=== PATIENT | female | born 1955 | race Caucasian/White ===

== ENCOUNTER → 2016-06-27 | Outpatient (CLI) | payer BC ==
--- NOTE | 2016-06-27 12:48 | MAMMOGRAPHY REPORT ---
BILATERAL DIGITAL SCREENING MAMMOGRAM TOMOSYNTHESIS WITH CAD: 06/27/2016 CLINICAL HISTORY: Routine screening. Patient has no complaints. TECHNIQUE: Breast tomosynthesis in addition to standard 2D mammography was performed. Current study was also evaluated with a Computer Aided Detection (CAD) system. COMPARISON: Comparison is made to exams dated: 06/26/2015 mammogram, 06/23/2014 mammogram, 06/22/2013 mammogram, 06/18/2012 mammogram, and 07/23/2011 ultrasound - [facility]. BREAST COMPOSITION: There are scattered areas of fibroglandular density in both breasts. FINDINGS: No suspicious masses, calcifications, or areas of architectural distortion are noted in e ither breast. There has been no significant interval change compared to prior exams. IMPRESSION: ACR BI-RADS CATEGORY 1: NEGATIVE There is no mammographic evidence of malignancy. A 1 year screening mammogram is recommended. The p atient will receive written notification of the results. Approximately 10% of breast cancers are not detected with mammography. A negative mammographic repor t should not delay biopsy if a clinically suggestive mass is present. Kinjal Oneil M.D. /:06/27/2016 12:01:44 Powder Blender: Brie [address], [facility] letter sent: Normal 1/2 BI-RADS Code: ACR BI-RADS Category 1: Negative
== END | disposition home or self-care (01) ==
LOC: C.MAMM 07:59
PROVIDERS: ATTEND Obstetrics & Gynecology
DX: Z12.31 Encounter for screening mammogram for malignant neoplasm of breast (principal)

== ENCOUNTER → 2017-06-30 | Outpatient (CLI) | payer OTHER ==
--- NOTE | 2017-07-01 13:03 | MAMMOGRAPHY REPORT ---
BILATERAL DIGITAL SCREENING MAMMOGRAM TOMOSYNTHESIS WITH CAD: 06/30/2017 CLINICAL HISTORY: Routine screening. TECHNIQUE: Breast tomosynthesis in addition to standard 2D mammography was performed. Current study was also evaluated with a Computer Aided Detection (CAD) system. COMPARISON: Comparison is made to exams dated: 06/27/2016 mammogram, 06/26/2015 mammogram, 06/23/2014 m ammogram, 06/22/2013 mammogram, 06/18/2012 mammogram, and 06/18/2011 mammogram - [facility] enter. BREAST COMPOSITION: There are scattered areas of fibroglandular density in both breasts. FINDINGS: The parenchymal pattern is unchanged. No developing mass, architectural distortion or clus ter of suspicious microcalcifications is seen in either breast. IMPRESSION: ACR BI-RADS CATEGORY 2: BENIGN There is no mammographic evidence of malignancy. A 1 year screening mammogram is recommended. The pa tient will receive written notification of the results. Approximately 10% of breast cancers are not detected with mammography. A negative mammographic report should not delay biopsy if a clinically suggestive mass is present. Lisa Marcus M.D. ay/:06/30/2017 16:11:54 Lime Sludge Kiln Operator: Daniela NYE(Tala)(M), [facility] letter sent: Normal 1/2 BI-RADS Code: ACR BI-RADS Category 2: Benign
== END | disposition home or self-care (01) ==
LOC: C.MAMM 08:41
PROVIDERS: ATTEND Obstetrics & Gynecology
DX: Z12.31 Encounter for screening mammogram for malignant neoplasm of breast (principal)

== ENCOUNTER 2021-08-12 10:29 | Observation (INO) ==
[2021-08-12] MEDS ORDERED: ONDANSETRON INJ 2 MG/ML 2 ML VIAL IV STA (11:11)
[2021-08-12] MEDS ORDERED: SODIUM CHLORIDE 0.9% 1000ML 1,000 ML IV ONE (11:11)
--- NOTE | 2021-08-12 11:15 | Emergency Department Note ---
History of Present Illness General Chief complaint: Illness Stated complaint: BIT BY TICK/PUT ON MEDICINE HAVING ALLERGIC REACTI Time Seen by Provider: 08/12/21 10:57 Source: patient and family ( who is at the bedside) Mode of arrival: ambulatory Limitations: no limitations History of Present Illness This patient comes in after feeling dizzy. She said around 10 days ago her daughter pulled a tick off her left scapular area. She is had no rash. She called her doctor and they gave her doxycycline 200 mg x 1. She felt some body aches and was feeling okay throughout the week although starting Friday she felt very dizzy like she was spinning it is worse if she moves or looks to the right. She feels better at rest. She had multiple episodes of emesis her gave her Dramamine and she has had no vomiting since Friday she started to feel little bit better than she was. She has had no focal numbness weakness denies any headache at present. No fall or trauma she does feel like her balance is off. No rash. No difficulty speaking or swallowing no chest pain shortness breath or abdominal pain. She has no ear pain. her right ear feels like she can hear her heartbeat in it no headache neck pain or stiffness. Home Medications Medication Instructions Recorded Confirmed Type diphenhydramine HCl 25 mg capsule 25 mg PO HS PRN 07/06/18 08/12/21 History (Benadryl) lidocaine 4 % topical gel 1 applic TOPICAL BID PRN 07/06/18 08/12/21 History tramadol 50 mg tablet 50 - 100 mg PO Q6H PRN 07/06/18 08/12/21 History albuterol sulfate 90 mcg/actuation 1 puffs INH Q6H PRN #8 gm 11/19/18 08/12/21 Rx aerosol inhaler meloxicam 15 mg tablet 15 mg PO DAILY #90 tab 10/12/19 08/12/21 Rx triamcinolone acetonide 0.1 % 1 appln TOP BID #30 gm 10/12/19 08/12/21 Rx topical cream montelukast 10 mg tablet 10 mg PO DAILY #30 tab 04/24/20 08/12/21 Rx (Singulair) clobetasol 0.05 % topical ointment 1 applic TOPICAL .COMPLEX #15 g 05/15/20 08/12/21 Rx amlodipine 5 mg tablet 5 mg PO DAILY #30 tab 02/06/21 08/12/21 Rx ropinirole 0.5 mg tablet 0.5 - 1 mg PO HS #90 tab 04/03/21 08/12/21 Rx benzonatate 200 mg capsule 200 mg PO TID PRN #30 cap 04/30/21 08/12/21 Rx citalopram 40 mg tablet 40 mg PO QPM #30 tab 05/14/21 08/12/21 Rx doxycycline hyclate 100 mg capsule 200 mg PO DAILY #2 cap 08/03/21 08/12/21 Rx Allergies Allergy/AdvReac Type Severity Reaction Status Date / Time morphine Allergy Intermediate Vomiting Unverified 08/12/21 11:36 No Known Drug Allergies Allergy Verified 08/08/20 15:26 nickel AdvReac RASH ON Verified 03/15/21 08:25 POSTERIOR NECK, MAY BE RELATED TO NECKLACE Effexor TABS Allergy Unknown Uncoded 08/12/21 11:36 Erythromycin Derivatives Allergy Unknown Uncoded 08/12/21 11:36 Past Med/Surg History Medical History Allergic rhinitis Depression Hypertension Lichen sclerosus et atrophicus Restless leg syndrome Surgical History H/O knee surgery History of cholecystectomy History of colonoscopy 2018, family hx History of hysterectomy with ovaries removed History of open reduction and internal fixation (ORIF) procedure ANKLE FX S/P nasal surgery Family History Family/Other Breast cancer Mother Breast cancer Grandmother (Maternal) Colon cancer Ovarian cancer Sister Multiple sclerosis Raynauds syndrome Father Lupus (systemic lupus erythematosus) Social History Smoking Status: Never smoker Second Hand Exposure: No; Hx Alcohol Use: Yes Alcohol type: other Hx Substance Use: No Preferred Language: Moldovan Communication Ability: Effective Genetic Engineer Required: No Beliefs That Will Affect Care: None Current Living Situation: Spouse Feels Safe at Home: Yes caffeine: Yes Assistive Devices: Glasses Review of Systems A total of 10 systems reviewed and were otherwise negative Physical Exam Vital Signs Vital Signs - 24 hr 08/12/21 10:33 08/12/21 11:32 08/12/21 13:32 Temperature 37 C Temperature Source Temporal Artery Scan Pulse Rate 96 H 72 Pulse Rate [Finger] Respiratory Rate 18 18 Respiratory Effort / Characteristics Non-Labored Spontaneous Respiratory Depth Normal Respiratory Pattern Regular Blood Pressure 173/104 H 152/91 H Blood Pressure [Left Arm] Blood Pressure Mean 127 111 Blood Pressure Mean [Left Arm] Blood Pressure Position Sitting Blood Pressure Position [Left Arm] Pulse Oximetry 100 97 98 Oxygen Delivery Method Room Air Room Air Room Air Sepsis Recent Fever Within 48 Hours No Sepsis New/Unexplained Change in Mental Status No Sepsis Action Taken by Nursing No Action Required 08/12/21 15:00 Temperature Temperature Source Pulse Rate Pulse Rate [Finger] 72 Respiratory Rate 18 Respiratory Effort / Characteristics Respiratory Depth Respiratory Pattern Blood Pressure Blood Pressure [Left Arm] 169/105 H Blood Pressure Mean Blood Pressure Mean [Left Arm] 126 Blood Pressure Position Blood Pressure Position [Left Arm] Sitting Pulse Oximetry 93 Oxygen Delivery Method Room Air Sepsis Recent Fever Within 48 Hours Sepsis New/Unexplained Change in Mental Status Sepsis Action Taken by Nursing General: Well developed well nourished older female who appears in no acute distress, breathing comfortably on room air. Normal speech she gets dizzy when she looks or turns to the right. HEENT: Normal cephalic atraumatic. Pupils are equal round and reactive to light . Extraocular movements are intact. Oropharynx is pink with moist mucous membranes. No swelling of the mouth lips or tongue. Neck: Supple with a midline trachea. No meningeal signs or stiffness, no JVD or bruits. No Stridor. Chest: Clear to auscultation bilaterally. No wheezes or rhonchi. No increased work of breathing. Heart: Regular rate and rhythm without murmurs or gallops. Abdomen: Soft nontender, nondistended without rebound guarding or rigidity. Extremities: No cyanosis clubbing or edema. No calf tenderness or assymetry Spine/Back. Non tender to palpation. No CVA tenderness Skin: Good turgor without rashes. Neurologic exam: Cranial nerves two through 12 are intact. Motor and sensation are intact and symmetrical throughout. Hearing is intact. No tremor. No pronator drift. Course Administered Medications Discontinued Medications Sodium Chloride (Nss 1000ml) 1,000 mls @ 999 mls/hr IV .Q1H1M ONE Stop: 08/12/21 12:11 Last Infusion: 08/12/21 13:06 Dose: 0 mls/hr Documented by: [id number] Admin: 08/12/21 11:34 Dose: 999 mls/hr Documented by: [id number] Meclizine HCl (Meclizine Hcl 25 Mg Tab) 25 mg PO NOW STA Stop: 08/12/21 13:46 Last Admin: 08/12/21 14:00 Dose: 25 mg Documented by: [id number] Ondansetron HCl (Ondansetron Inj 2 Mg/Ml 2 Ml Vial) 4 mg IV NOW STA Stop: 08/12/21 11:12 Last Admin: 08/12/21 11:36 Dose: 4 mg Documented by: [id number] Medical Decision Making Differential Diagnosis Acute coronary syndrome, tickborne illness, medication reaction, vertigo, electrolyte or metabolic abnormality, dehydration, intracranial process, CVA Medical Records Attestation: I reviewed the patient's medical records. Home Medications Current Medication List: was personally reviewed by me Laboratory Data Attestation: I reviewed the patient's lab results. Result diagrams: 08/12/21 11:28 08/12/21 11:28 Lab Results 08/12/21 08/12/21 08/12/21 Range/Units 11:28 11:28 11:28 WBC 6.00 (4.8-10.8) K/uL RBC 4.71 (4.2-5.4) M/uL Hgb 13.7 (12.0-16.0) g/dL Hct 41.2 (37-47) % MCV 87.5 (80-100) fL MCH 29.1 (25-34) pg MCHC 33.3 (32-36) g/dL RDW Std Deviation 46.1 (36.4-46.3) fL RDW Coeff of Abad 14.3 (11.5-14.5) % Plt Count 292 (130-400) K/uL MPV 11.2 H (7.4-10.4) fL Immature Gran % (Auto) 0.3 % Neut % (Auto) 63.6 % Lymph % (Auto) 25.2 % [place] % (Auto) 9.2 % Eos % (Auto) 1.2 % Baso % (Auto) 0.5 % Neut # (Auto) 3.82 (1.4-6.5) K/uL Lymph # (Auto) 1.51 (1.2-3.4) K/uL [place] # (Auto) 0.55 (0.11-0.59) K/uL Eos # (Auto) 0.07 (0-0.5) K/uL Baso # (Auto) 0.03 (0-0.2) K/uL Immature Gran # (Auto) 0.02 (0.00-0.02) K/uL Sodium (136-145) mmol/L Potassium (3.5-5.1) mmol/L Chloride (98-107) mmol/L Carbon Dioxide (21-32) mmol/L Anion Gap (3-11) BUN (6-23) mg/dl Creatinine (0.6-1.2) mg/dl Est Cr Clr Drug Dosing ml/min Est GFR ( Amer) ml/min Est GFR (Non-Af Amer) ml/min BUN/Creatinine Ratio (10-20) Glucose (70-99(Fasting)) mg/dl Calcium (8.5-10.1) mg/dl Total Bilirubin (0.2-1.0) mg/dl AST (13-39) U/L ALT (7-52) U/L Alkaline Phosphatase (34-104) U/L Troponin I High Sens 5.2 (0-14) pg/ml Total Protein (6.0-8.3) gm/dl Albumin (3.4-5.0) gm/dl Globulin (2.5-4.0) gm/dl Albumin/Globulin Ratio (0.9-2) Lipase (11-82) U/L Anaplasma Smear See Comment Babesia Smear See Comment Lyme Disease IgG Ab Negative (Negative) Lyme Disease IgM Ab Negative (Negative) SARS-CoV-2, RNA, NAAT (NEGATIVE) 08/12/21 08/12/21 Range/Units 11:28 15:09 WBC (4.8-10.8) K/uL RBC (4.2-5.4) M/uL Hgb (12.0-16.0) g/dL Hct (37-47) % MCV (80-100) fL MCH (25-34) pg MCHC (32-36) g/dL RDW Std Deviation (36.4-46.3) fL RDW Coeff of Abad (11.5-14.5) % Plt Count (130-400) K/uL MPV (7.4-10.4) fL Immature Gran % (Auto) % Neut % (Auto) % Lymph % (Auto) % [place] % (Auto) % Eos % (Auto) % Baso % (Auto) % Neut # (Auto) (1.4-6.5) K/uL Lymph # (Auto) (1.2-3.4) K/uL [place] # (Auto) (0.11-0.59) K/uL Eos # (Auto) (0-0.5) K/uL Baso # (Auto) (0-0.2) K/uL Immature Gran # (Auto) (0.00-0.02) K/uL Sodium 141 (136-145) mmol/L Potassium 3.5 (3.5-5.1) mmol/L Chloride 105 (98-107) mmol/L Carbon Dioxide 27 (21-32) mmol/L Anion Gap 9 (3-11) BUN 14 (6-23) mg/dl Creatinine 0.79 (0.6-1.2) mg/dl Est Cr Clr Drug Dosing 78.2 ml/min Est GFR ( Amer) 91.0 ml/min Est GFR (Non-Af Amer) 78.6 ml/min BUN/Creatinine Ratio 17.7 (10-20) Glucose 96 (70-99(Fasting)) mg/dl Calcium 9.5 (8.5-10.1) mg/dl Total Bilirubin 0.4 (0.2-1.0) mg/dl AST 13 (13-39) U/L ALT 11 (7-52) U/L Alkaline Phosphatase 96 (34-104) U/L Troponin I High Sens (0-14) pg/ml Total Protein 7.2 (6.0-8.3) gm/dl Albumin 4.3 (3.4-5.0) gm/dl Globulin 2.9 (2.5-4.0) gm/dl Albumin/Globulin Ratio 1.5 (0.9-2) Lipase 10 L (11-82) U/L Anaplasma Smear Babesia Smear Lyme Disease IgG Ab (Negative) Lyme Disease IgM Ab (Negative) SARS-CoV-2, RNA, NAAT NEGATIVE (NEGATIVE) Imaging Data Attestation: I personally reviewed and interpreted this imaging study as follows: My Impression: X-rayno acute infiltrate, failure, pneumothorax seen. Head CTno hemorrhage or mass-effect. Radiologist's Impression: Chest X-Ray 08/12/21 11:11 XR chest 1V portable CLINICAL HISTORY: Atypical chest pain. COMPARISON STUDY: Chest radiograph December 22, 2018. FINDINGS: Mild elevation of the right hemidiaphragm is unchanged. Linear left mid lung opacity reflects atelectasis or scarring. There is no pneumothorax or pleural effusion. Cardiac size is stable. Mediastinal contours are normal. There is no evidence for pulmonary edema. IMPRESSION: No acute cardiopulmonary findings. ACT 112: Negative or not required by law. Electronically signed by: Jc Pulliam M.D. 08/12/2021 11:[address] 08/12/21 11:21 CT OF THE HEAD WITHOUT CONTRAST CLINICAL HISTORY: Dizzy. COMPARISON STUDY: No previous studies for comparison. CT DOSE: 537.48 mGy.cm TECHNIQUE: Helical axial images of the head were obtained without IV contrast. Automated exposure control was utilized for the study. A dose lowering techniq ue was utilized adhering to the principles of ALARA. FINDINGS: No acute intracranial hemorrhage, midline shift or mass effect is present. The ventricular system is unremarkable. The basal cisterns are patent. No extra-axial collections are present. There are no findings to suggest acute dural sinus thrombosis or acute territorial infarct. No significant calvarial abnormalities are present. Visualized portions of the sinuses and mastoid air cells are clear. IMPRESSION: No acute intracranial findings. ACT 112: Negative or not required by law. Electronically signed by: Jc Pulliam M.D. 08/12/2021 12:12 PM ECG Data Attestation: I personally reviewed and interpreted this ECG as follows: Indication: + weakness Rate (beats per minute): 67 Rhythm: + normal sinus ECG Intervals/blocks: + Normal QRS, + Normal QT and + Normal HI ECG [place]: + Normal ECG ST segments: + Nonspecific ST abnormalities ECG Findings: + Poor R wave progression and + LVH; no PACs or no PVCs Comparison ECG Date: from (07/21/13) Change: no significant change MDM Narrative This patient comes in as described above. She was placed in room C2. She is here for treatment and evaluation of dizziness. It is reproducible with movement she has a normal neurologic exam she did have a tick bite which may or may not be related she also took doxycycline x1. She is afebrile she has had no headache neck pain or stiffness. IV acccess was established and she was hydrated with IV normal saline bolus. she was given Zofran 4 mg IV. CAT scan of her head EKG and multiple blood test including tickborne studies were obtained she also COVID tested. CAT scan of her head is unremarkable. EKG does not suggest ischemia or arrhythmia. She has no significant electrolyte or metabolic abnormality. She has nothing to suggest infection or sepsis or significant anemia. Her work-up for a tickborne illness thus far is unremarkable with a normal Lyme titers, no evidence of babesiosis or anaplasmosis on peripheral smear. PCR's are pending. She has no bull's-eye rash to suggest Lyme and clinically I do not think her symptoms are likely related to tickborne but may be coincidental as it seems more likely a peripheral vertigo. When I reassessed her she seems to be doing a lot better and feels well at rest however when we tried to get her up to the bathroom she is very dizzy and off-balance and unable to ambulate by herself. She certainly is a fall risk and I do think can safely go home. In light of her continuation of symptoms, I also did add an MRI which is pending and the hospitalist came and saw her as well for admission/observation. I think this most likely is peripheral vertigo and her symptoms have been going on since Friday so she is outside of neuro intervention window at this point and even in the event that it was a stroke but she is getting further work-up with MRI and observation in the hospital. The patient and are happy the plan and she will be admitted/observed. Continuous cardiac monitoring: An order was placed in the EMR for continuous cardiac monitoring. Upon my interpretation the patient was noted to be in normal sinus rhythm with a rate of 90 Impression & Plan Dizziness, Acute dehydration, Lab test negative for COVID-19 virus, Ambulatory dysfunction, Tick bite Discharge Plan Visit Data Chief Complaint: Illness Stated Complaint: BIT BY TICK/PUT ON MEDICINE HAVING ALLERGIC REACTI ED Provider: Dirk Montoya Discharge Problem: Dizziness, Acute dehydration, Lab test negative for COVID-19 virus, Ambulatory dysfunction, Tick bite Forms Stand Alone Forms: My [facility] Prescriptions Prescriptions: No Action amlodipine 5 mg tablet 5 mg PO DAILY Qty: 30 RF: 11 ropinirole 0.5 mg tablet 0.5 - 1 mg PO HS Qty: 90 RF: 3 benzonatate 200 mg capsule 200 mg PO TID PRN (Reason: cough) Qty: 30 RF: 0 citalopram 40 mg tablet 40 mg PO QPM Qty: 30 RF: 11 doxycycline hyclate 100 mg capsule 200 mg PO DAILY Qty: 2 RF: 0 triamcinolone acetonide 0.1 % cream 1 appln TOP BID Qty: 30 RF: 3 meloxicam 15 mg tablet 15 mg PO DAILY Qty: 90 RF: 3 montelukast [Singulair] 10 mg tablet 10 mg PO DAILY Qty: 30 RF: 11 clobetasol 0.05 % ointment 1 applic topical .COMPLEX Qty: 15 RF: 1 albuterol sulfate 90 mcg/actuation HFA aerosol inhaler 1 puffs INH Q6H PRN (Reason: shortness of breath or wheezing) Qty: 8 RF: 1 tramadol 50 mg Tablet 50 - 100 mg PO Q6H PRN (Reason: Pain) RF: 0 diphenhydramine HCl [Benadryl] 25 mg Capsule 25 mg PO HS PRN (Reason: Sleep) RF: 0 lidocaine 4 % Gel 1 applic TOPICAL BID PRN (Reason: PRN) RF: 0 Referrals Referrals: Shiraz Leyva MD [Primary Care Provider] - Discharge Problem: Tick bite Qualifiers: Encounter type: initial encounter Site of tick bite: shoulder Laterality: left Qualified Code(s): S40.262A - Insect bite (nonvenomous) of left shoulder, initial encounter
--- NOTE | 2021-08-12 11:56 | XRay Report ---
XR chest 1V portable CLINICAL HISTORY: Atypical chest pain. COMPARISON STUDY: Chest radiograph December 22, 2018. FINDINGS: Mild elevation of the right hemidiaphragm is unchanged. Linear left mid lung opacity reflec ts atelectasis or scarring. There is no pneumothorax or pleural effusion. Cardiac size is stable. Med iastinal contours are normal. There is no evidence for pulmonary edema. IMPRESSION: No acute cardiopulmonary findings. ACT 112: Negative or not required by law. Electronically signed by: Jc Pulliam M.D. 08/12/2021 11:55 AM
--- NOTE | 2021-08-12 12:13 | CT Scan Report ---
CT OF THE HEAD WITHOUT CONTRAST CLINICAL HISTORY: Dizzy. COMPARISON STUDY: No previous studies for comparison. CT DOSE: 537.48 mGy.cm TECHNIQUE: Helical axial images of the head were obtained without IV contrast. Automated exposure con trol was utilized for the study. A dose lowering technique was utilized adhering to the principles o f ALARA. FINDINGS: No acute intracranial hemorrhage, midline shift or mass effect is present. The ventricular system is unremarkable. The basal cisterns are patent. No extra-axial collections are present. There are no findings to suggest acute dural sinus thrombosis or acute territorial infarct. No significant calvarial abnormalities are present. Visualized portions of the sinuses and mastoid air cells are dejon ar. IMPRESSION: No acute intracranial findings. ACT 112: Negative or not required by law. Electronically signed by: Jc Pulliam M.D. 08/12/2021 12:12 PM
[2021-08-12 12:14] LABS: Basophils # (auto) 0.03 K/uL (0-0.2); Basophils % (auto) 0.5 %; Eosinophils # (auto) 0.07 K/uL (0-0.5); Eosinophils % (auto) 1.2 %; Hematocrit (blood only) 41.2 % (37-47); Hemoglobin 13.7 g/dL (12.0-16.0); Immature Granulocytes # (auto) 0.02 K/uL (0.00-0.02); Immature Granulocytes % (auto) 0.3 %; Lymphocytes # (auto) 1.51 K/uL (1.2-3.4); Lymphocytes % (auto) 25.2 %; Mean Corpuscular Hemoglobin 29.1 pg (25-34); Mean Corpuscular Hgb Conc 33.3 g/dL (32-36); Mean Corpuscular Volume 87.5 fL (80-100); Mean Platelet Volume 11.2 fL (7.4-10.4); Monocytes # (auto) 0.55 K/uL (0.11-0.59); Monocytes % (auto) 9.2 %; Neutrophils # (auto) 3.82 K/uL (1.4-6.5); Neutrophils % (auto) 63.6 %; Platelet Count 292 K/uL (130-400); RDW Coefficient of Variation 14.3 % (11.5-14.5); RDW Standard Deviation 46.1 fL (36.4-46.3); Red Blood Count 4.71 M/uL (4.2-5.4)
[2021-08-12 12:25] LABS: Albumin Level 4.3 gm/dl (3.4-5.0); Bilirubin,Total 0.4 mg/dl (0.2-1.0); Calcium 9.5 mg/dl (8.5-10.1); Potassium 3.5 mmol/L (3.5-5.1)
[2021-08-12 12:31] LABS: Albumin Globulin Ratio 1.5 (0.9-2); BUN Creatinine Ratio 17.7 (10-20); Creatinine Clr Calc Pharmacy 78.2 ml/min; Est GFR (Non-African American) 78.6 ml/min; Globulin 2.9 gm/dl (2.5-4.0); Total Protein 7.2 gm/dl (6.0-8.3)
[2021-08-12 12:55] LABS: Lyme Ab IgG w/WB Rflx Negative (Negative); Lyme Ab IgM w/WB Rflx Negative (Negative)
[2021-08-12] MEDS ORDERED: MECLIZINE HCL 25 MG TAB PO STA (13:45)
--- NOTE | 2021-08-12 16:25 | History & Physical Report ---
Date of Service August 12, 2021 Assessment & Plan (1) Dizziness: (2) Ambulatory dysfunction: (3) Tick bite: (4) Depression: (5) Hypertension: (6) Restless leg syndrome: Plan: Hortencia is a 66 year old female w/ PmHx allergic rhinitis, restless leg syndrome, lichen sclerosis et atrophicus, depression admitted for observation for dizziness impacting ambulation. Dizziness/Ambulatory dysfunction: - Patient neurologically intact, CT head w/o abnormalities. - EKG w/ normal sinus rhythm, w/o acute ischemic changes. - MRI brain ordered. - Symptoms replicated w/ head turn L to R, w/o nystagmus. - BPPV vs viral induced vertigo. - Zofran, Meclizine Q6h PRN for nausea. - PT/OT eval tomorrow. Tick Bite: - Tick bite w/o trace of rash. - Treated w/ 200mg doxycycline prophylactically w/o issue. - Tick panel grossly negative. HTN: -Continue home amlodipine 5mg daily. Restless leg syndrome: - Continue home ropinirole. Depression: - Continue home citalopram. Postmenopausal atrophic vaginitis: - Continue home clobetasol. Asthma: - Continue home albuterol, monteleukast. Fibromyalgia: - Continue home meloxicam. F/E/N/GI: Regular diet. Code Status: Full code. Dispo: Med/surg observation. History of Present Illness Chief Complaint: Dizziness Primary Care Provider: Shiraz Leyva MD Hortencia is a 66 year old female w/ past medical history of allergic rhinitis, restless leg syndrome, lichen sclerosis et atrophicus, depression coming in for dizziness x3 days. She says she found a tick on her left arm 08/02 without any signs of rash or systemic symptoms. The next day she called her primary care office which prescribed her 200mg of doxycycline to take at once. She last took the doxycycline on Friday and had no issues with it. Friday morning around 3:30AM she awoke to take her dog out to use nature's facilities then went back to bed. At ~5AM she awoke to use the bathroom, got out of bed and felt like she couldn't find her balance very well. She also felt like her eyes were going around in circles. Her checked her eyes with a light and found that they were equal and reactive to light and there were no motion abnormalities. She laid on the floor for quite some time to try to get the dizziness to stop but it did not help too much. She also experienced some vomi ting that she attributes to the dizziness. She had to sleep the whole day Friday in order to keep the dizziness down. Friday was a little better however the dizziness and balance issues persisted into today which prompted her mother to tell her to come to the emergency department to get checked out, otherwise she had plans to go to an urgent care or her PCP office. She also endorses experiencing night sweats but no fevers or chills. She has not had any recent travel, stays active in her yard, and has not had any prolonged periods of bed rest prior to the incident. She had a headache when this first happened that was mild and located at the frontal aspect of her forehead, no temporal involvement. She denies any strength focal deficits or numbness or tingling. Denies loss of consciousness, shortness of breath, breathing difficulties, feeling of throat closure, dysphagia, dysarthria, diarrhea, constipation, dysuria, urinary frequency, arthralgia or myalgia outside usual fibromyalgia pains, rashes or lesions, vision or hearing changes, peripheral swelling. Allergies Allergy/AdvReac Type Severity Reaction Status Date / Time morphine Allergy Intermediate Vomiting Unverified 08/12/21 11:36 No Known Drug Allergies Allergy Verified 08/08/20 15:26 nickel AdvReac RASH ON Verified 03/15/21 08:25 POSTERIOR NECK, MAY BE RELATED TO NECKLACE Effexor TABS Allergy Unknown Uncoded 08/12/21 11:36 Erythromycin Derivatives Allergy Unknown Uncoded 08/12/21 11:36 Home Medications Medication Instructions Recorded Confirmed Type diphenhydramine HCl 25 mg capsule 25 mg PO HS PRN 07/06/18 08/12/21 History (Benadryl) lidocaine 4 % topical gel 1 applic TOPICAL BID PRN 07/06/18 08/12/21 History tramadol 50 mg tablet 50 - 100 mg PO Q6H PRN 07/06/18 08/12/21 History albuterol sulfate 90 mcg/actuation 1 puffs INH Q6H PRN #8 gm 11/19/18 08/12/21 Rx aerosol inhaler meloxicam 15 mg tablet 15 mg PO DAILY #90 tab 07/07/20 05/08/22 Rx triamcinolone acetonide 0.1 % 1 appln TOP BID #30 gm 10/12/19 08/12/21 Rx topical cream montelukast 10 mg tablet 10 mg PO DAILY #30 tab 04/24/20 08/12/21 Rx (Singulair) clobetasol 0.05 % topical ointment 1 applic TOPICAL .COMPLEX #15 g 05/15/20 08/12/21 Rx amlodipine 5 mg tablet 5 mg PO DAILY #30 tab 02/06/21 08/12/21 Rx ropinirole 0.5 mg tablet 0.5 - 1 mg PO HS #90 tab 04/03/21 08/12/21 Rx benzonatate 200 mg capsule 200 mg PO TID PRN #30 cap 04/30/21 08/12/21 Rx citalopram 40 mg tablet 40 mg PO QPM #30 tab 05/14/21 08/12/21 Rx doxycycline hyclate 100 mg capsule 200 mg PO DAILY #2 cap 08/03/21 08/12/21 Rx Past Med/Surg History Medical History Allergic rhinitis Depression Hypertension Lichen sclerosus et atrophicus Restless leg syndrome Surgical History H/O knee surgery History of cholecystectomy History of colonoscopy 2018, family hx History of hysterectomy with ovaries removed History of open reduction and internal fixation (ORIF) procedure ANKLE FX S/P nasal surgery Family History Family/Other Breast cancer Mother Breast cancer Grandmother (Maternal) Colon cancer Ovarian cancer Sister Multiple sclerosis Raynauds syndrome Father Lupus (systemic lupus erythematosus) Social History Smoking Status: Never smoker Second Hand Exposure: No; Hx Alcohol Use: Yes Alcohol type: wine Hx Substance Use: No Preferred Language: Portuguese Communication Ability: Effective Steamblaster Required: No Beliefs That Will Affect Care: Synagogue Synagogue Beliefs: adventist Current Living Situation: Spouse Other Information That Helps Us Care for You: No Feels Safe at Home: Yes Safety Concerns: Feels Safe At This Time caffeine: Yes Assistive Devices: None Review of Systems Constitutional: as per Subjective / HPI Physical Exam Physical Exam: Patient sitting comfortably in bed, breathing on room air without issue, not in any acute distress. Constitutional: WD/WN, vitals as above Eyes: PERRL, conjunctivae normal, anicteric sclerae No nystagmus noted. ENMT: Oropharynx normal appearing. Respiratory: normal respiratory effort, lungs clear to auscultation Cardiovascular: RRR, no murmur, no edema Gastrointestinal (Abdomen): normal bowel sounds, soft, nontender, no hepatosplenomegaly Musculoskeletal: no cyanosis or clubbing, extremities motor strength 5/5 Skin: no rashes, warm and dry Neurologic: patellar DTR's 2+ bilat, sensation intact Psychiatric: A+Ox3, euthymic affect Results & Data Results & Data ([facility]) Vital Signs (Past 12 Hours) Vital Signs Temp Pulse Pulse Resp BP BP Pulse Ox 08/12/21 15:00 72 18 169/105 H 93 08/12/21 13:32 72 18 152/91 H 98 08/12/21 11:32 97 08/12/21 10:33 37 C 96 H 18 173/104 H 100 Supervising Physician Co-Signing Physician Notes Resident Physician Supervision Note: I independently interviewed and examined the patient and verified the medina history and physical, reviewed labs and image studies and agree with resident Dr. Tiwari findings and care plan. Resident Activity Tracking Resident Involvement: Resident Care Provided Care Provided: Adult Hospital Medicine (1) Tick bite Encounter type: initial encounter Laterality: left Site of tick bite: shoulder Qualified Code(s): S40.262A - Insect bite (nonvenomous) of left shoulder, initial encounter; W57.XXXA - Bitten or stung by nonvenomous insect and other nonvenomous arthropods, initial encounter
[2021-08-12] MEDS ORDERED: GADOBUTROL 30ML VIAL IV ONE (16:56)
[2021-08-12] MEDS ORDERED: ONDANSETRON INJ 2 MG/ML 2 ML VIAL IV PRN (17:25)
[2021-08-12] MEDS ORDERED: ACETAMINOPHEN 325 MG TAB PO PRN (17:25)
[2021-08-12] MEDS ORDERED: POLYETHYLENE (MIRALAX) 17 GM PACK PO PRN (17:25)
[2021-08-12] MEDS ORDERED: BENZONATATE 100 MG CAPSULE PO PRN (17:25)
[2021-08-12] MEDS ORDERED: ALUMINUM/MAGNESIUM SUSP 30 ML UDC PO PRN (17:25)
[2021-08-12] MEDS ORDERED: ALBUTEROL HFA 8 GM INHALER INH PRN (17:25)
[2021-08-12] MEDS ORDERED: traMADol HCL 50 MG TABLET PO PRN (17:25)
[2021-08-12] MEDS ORDERED: MAGNESIUM HYDROXIDE SUSP 30 ML UDC PO PRN (17:25)
--- NOTE | 2021-08-12 17:33 | Magnetic Resonance Report ---
MRI OF THE BRAIN WITHOUT AND WITH IV CONTRAST CLINICAL HISTORY: dizziness COMPARISON STUDY: Head CT performed earlier today. TECHNIQUE: Utilizing a 1.5 Marsha magnet and dedicated coil, multiplanar, multiecho imaging of the br ain was performed pre and postcontrast administration. IV administration of 9.5 mL of Gadavist contr ast was uneventful. FINDINGS: There are no foci of restricted diffusion to suggest acute infarct. No acute intracranial h emorrhage, midline shift or mass effect is present. Brain volume is normal. Ventricular system is nor mal. Basal cisterns are patent. There are no extra-axial collections. Flow-voids for the major intrac ranial vessels are present. There is no intracranial mass or pathologic enhancement. Multiple small w corrine matter T2 hyperintense foci are present. Calvarial signal is normal. Orbits are unremarkable. Th ere is no mastoid fluid. No mass within the internal auditory canals is identified on this nondedicat ed exam. No evidence for sinusitis. IMPRESSION: 1. No acute intracranial findings. 2. No intracranial mass or pathologic enhancement. 3. Multiple white matter T2 hyperintense foci which are nonspecific but favor mild small vessel disea se. ACT 112: Negative or not required by law. Electronically signed by: Jc Pulliam M.D. 08/12/2021 5:30 PM
[2021-08-12] MEDS ORDERED: CITALOPRAM 40 MG TAB PO SCH (21:00)
[2021-08-12] MEDS ORDERED: rOPINIRole HCL 0.25 MG TABLET PO SCH (21:00)
[2021-08-12] MEDS: TRIAMCINOLONE ACET 0.1% CR 15 GM TUBE TOP SCH (21:00)
--- NOTE | 2021-08-13 06:14 | Electrocardiogram Report ---
Test Reason : Blood Pressure : / mmHG Vent. Rate : 067 BPM Atrial Rate : 067 BPM P-R Int : 164 ms QRS Dur : 088 ms QT Int : 414 ms P-R-T Axes : 045 -29 008 degrees QTc Int : 437 ms Normal sinus rhythm Possible Left atrial enlargement Left ventricular hypertrophy Cannot rule out Septal infarct , age undetermined Abnormal ECG When compared with ECG of 21-JUL-2013 11:24, T wave inversion now evident in Inferior leads Nonspecific T wave abnormality now evident in Anterior leads Confirmed by Heraclio De La Rosa ([id number]) on 08/13/2021 6:13:46 AM Referred By: REFERRED SELF Confirmed By:Heraclio De La Rosa
[2021-08-13 07:03] LABS: Basophils # (auto) 0.04 K/uL (0-0.2); Basophils % (auto) 0.7 %; Eosinophils # (auto) 0.18 K/uL (0-0.5); Eosinophils % (auto) 3.1 %; Hematocrit (blood only) 39.4 % (37-47); Immature Granulocytes # (auto) 0.02 K/uL (0.00-0.02); Immature Granulocytes % (auto) 0.3 %; Lymphocytes # (auto) 2.07 K/uL (1.2-3.4); Lymphocytes % (auto) 35.9 %; Mean Corpuscular Volume 87.9 fL (80-100); Mean Platelet Volume 10.3 fL (7.4-10.4); Monocytes # (auto) 0.52 K/uL (0.11-0.59); Neutrophils # (auto) 2.94 K/uL (1.4-6.5); Platelet Count 307 K/uL (130-400); RDW Coefficient of Variation 14.1 % (11.5-14.5); RDW Standard Deviation 45.7 fL (36.4-46.3); Red Blood Count 4.48 M/uL (4.2-5.4); White Blood Count 5.77 K/uL (4.8-10.8)
[2021-08-13 07:09] LABS: BUN Creatinine Ratio 18.2 (10-20); Calcium 9.1 mg/dl (8.5-10.1); Creatinine Clr Calc Pharmacy 80.1 ml/min; Est GFR (African American) 93.9 ml/min; Magnesium 1.9 mg/dl (1.7-2.4); Phosphorus 3.6 mg/dl (2.5-4.9); Potassium 3.6 mmol/L (3.5-5.1)
[2021-08-13] MEDS ORDERED: MELOXICAM 7.5 MG TAB PO SCH (09:00)
[2021-08-13] MEDS ORDERED: MONTELUKAST SODIUM 10 MG TABLET PO SCH (09:00)
[2021-08-13] MEDS ORDERED: amLODIPine BESYLATE 5 MG TAB PO SCH (09:00)
[2021-08-13] MEDS: MECLIZINE 12.5 MG TAB PO PRN ×2 (09:36→15:28)
[2021-08-13] MEDS: TRIAMCINOLONE ACET 0.1% CR 15 GM TUBE TOP SCH (11:29)
--- NOTE | 2021-08-13 15:07 | Discharge Summary ---
Date of Service August 13, 2021 Admission HPI Per Admitting Provider Hortencia is a 66 year old female w/ past medical history of allergic rhinitis, restless leg syndrome, lichen sclerosis et atrophicus, depression coming in for dizziness x3 days. She says she found a tick on her left arm 08/02 without any signs of rash or systemic symptoms. The next day she called her primary care office which prescribed her 200mg of doxycycline to take at once. She last took the doxycycline on Friday and had no issues with it. Friday morning around 3:30AM she awoke to take her dog out to use nature's facilities then went back to bed. At ~5AM she awoke to use the bathroom, got out of bed and felt like she couldn't find her balance very well. She also felt like her eyes were going around in circles. Her checked her eyes with a light and found that they were equal and reactive to light and there were no motion abnormalities. She laid on the floor for quite some time to try to get the dizziness to stop but it did not help too much. She also experienced some vomiting that she attributes to the dizziness. She had to sleep the whole day Friday in order to keep the dizziness down. Friday was a little better however the dizziness and balance issues persisted into today which prompted her mother to tell her to come to the emergency department to get checked out, otherwise she had plans to go to an urgent care or her PCP office. She also endorses experiencing night sweats but no fevers or chills. She has not had any recent travel, stays active in her yard, and has not had any prolonged periods of bed rest prior to the incident. She had a headache when this first happened that was mild and located at the frontal aspect of her forehead, no temporal involvement. She denies any strength focal deficits or numbness or tingling. Denies loss of consciousness, shortness of breath, breathing difficulties, feeling of throat closure, dysphagia, dysarthria, diarrhea, constipation, dysuria, urinary frequency, arthralgia or myalgia outside usual fibromyalgia pains, rashes or lesions, vision or hearing changes, peripheral swelling. Principal Diagnosis Vertigo Discharge Exam Constitutional WD/WN, vitals as above Eyes + anicteric sclerae ENMT external ear and nose normal, oropharynx normal Neck trachea midline, no thyromegaly Respiratory normal respiratory effort, lungs clear to auscultation Cardiovascular RRR, no murmur, no edema Gastrointestinal (Abdomen) Inspection/Auscultation: normal bowel sounds Musculoskeletal no cyanosis or clubbing, extremities motor strength 5/5 Head/Neck/Chest: normocephalic and head atraumatic Skin no rashes, warm and dry Neurologic patellar DTR's 2+ bilat, sensation intact moves all extremities Andriy-Hallpike positive on the right Psychiatric A+Ox3, euthymic affect Discharge Data Allergies Allergy/AdvReac Type Severity Reaction Status Date / Time morphine Allergy Intermediate Vomiting Unverified 08/12/21 11:36 No Known Drug Allergies Allergy Verified 08/08/20 15:26 nickel AdvReac RASH ON Verified 03/15/21 08:25 POSTERIOR NECK, MAY BE RELATED TO NECKLACE Effexor TABS Allergy Unknown Uncoded 08/12/21 11:36 Erythromycin Derivatives Allergy Unknown Uncoded 08/12/21 11:36 Consultations 08/12/21 15:50 ED Decision to Admit Stat Ordered Studies 08/12/21 11:21 CT head/brain wo con Stat 08/12/21 14:59 MR brain wo/w con Stat Hospital Course (1) Dizziness: (2) Ambulatory dysfunction: (3) Tick bite: (4) Depression: (5) Hypertension: (6) Restless leg syndrome: Hortencia is a 66 year old female w/ PmHx allergic rhinitis, restless leg syndrome, lichen sclerosis et atrophicus, depression admitted for observation for dizziness impacting ambulation. Dizziness/Ambulatory dysfunction: - Patient neurologically intact, CT head w/o abnormalities. - EKG w/ normal sinus rhythm, w/o acute ischemic changes. - MRI brain ordered, nothing concerning for stroke - Symptoms replicated w/ head turn L to R, w/o nystagmus. - BPPV vs viral induced vertigo is leading differential - Zofran, Meclizine Q6h PRN for nausea. - PT provided treatment with Bernarda maneuver and provided information regarding outpatient exercises to help with vertigo. Tick Bite: - Tick bite w/o trace of rash. - Treated w/ 200mg doxycycline prophylactically w/o issue. - Tick panel grossly negative. HTN: -Continue home amlodipine 5mg daily. Restless leg syndrome: - Continue home ropinirole. Depression: - Continue home citalopram. Postmenopausal atrophic vaginitis: - Continue home clobetasol. Asthma: - Continue home albuterol, monteleukast. Fibromyalgia: - Continue home meloxicam. F/E/N/GI: Regular diet. Code Status: Full code. Dispo: Med/surg observation. Total Time Total Time Spent Total Time Spent (In Minutes): 30 Discharge Plan Discharge Items Patient Disposition: Home - Self-Care Reason For Visit: AMBULATORY DYSFUNCTION Discharge Diagnosis: Vertigo Activity: Per Instructions section Non-emergency contact: Primary Care Provider Call non-emergency contact if: you have any medication questions Follow-up/Referrals: Shiraz Leyva MD [Primary Care Provider] - Diet: Regular Addtl Attending Provider Instructions: You were seen in the hospital for the complaint of dizziness. While you are here you had an evaluation for tickborne illnesses which ultimately returned negative. Additionally you were worked up for a stroke. MRI imaging was negative for anything concerning for a stroke. During her evaluation your physical exam was indicative of a disorder called benign paroxysmal positional vertigo, a condition where certain positions can induce dizziness. Because of this, you were seen by physical therapy who provided you with treatment options that you can do at home. This condition is likely self-limited and will resolve within the next couple of weeks. During this time we do not recommend that you operate a motor vehicle as you may become dizzy while driving. Use at your discretion when you feel you are able to drive again. Please follow-up with your primary care provider within 1 week of discharge for further management. Has been a pleasure to be a part of your care and we wish you the best in both her recovery and her health. Pending Studies at Discharge: No Stand-Alone Forms: [employer], Work/School Release, Smoking Cessation Medications and DC Order Prescriptions: New meclizine 12.5 mg Tablet 12.5 mg PO Q6H PRN (Reason: dizziness or vertigo) Qty: 30 RF: 0 Continued amlodipine 5 mg tablet 5 mg PO DAILY Qty: 30 RF: 11 ropinirole 0.5 mg tablet 0.5 - 1 mg PO HS Qty: 90 RF: 3 benzonatate 200 mg capsule 200 mg PO TID PRN (Reason: cough) Qty: 30 RF: 0 citalopram 40 mg tablet 40 mg PO QPM Qty: 30 RF: 11 triamcinolone acetonide 0.1 % cream 1 appln TOP BID Qty: 30 RF: 3 meloxicam 15 mg tablet 15 mg PO DAILY Qty: 90 RF: 3 montelukast [Singulair] 10 mg tablet 10 mg PO DAILY Qty: 30 RF: 11 clobetasol 0.05 % ointment 1 applic topical .COMPLEX Qty: 15 RF: 1 albuterol sulfate 90 mcg/actuation HFA aerosol inhaler 1 puffs INH Q6H PRN (Reason: shortness of breath or wheezing) Qty: 8 RF: 1 tramadol 50 mg Tablet 50 - 100 mg PO Q6H PRN (Reason: Pain) RF: 0 diphenhydramine HCl [Benadryl] 25 mg Capsule 25 mg PO HS PRN (Reason: Sleep) RF: 0 lidocaine 4 % Gel 1 applic TOPICAL BID PRN (Reason: PRN) RF: 0 Discontinued doxycycline hyclate 100 mg capsule 200 mg PO DAILY Qty: 2 RF: 0 Discharge Orders: Discharge Order (Routine); Ordered 08/13/21 Ordered By: Garret Elmore/Other Patient Handouts: BPPV Admission Data Admit Date/Time: 08/12/21 15:39 Attending Provider: Prashant Rivas Admit Provider: Alexandre Tiwari Primary Care Provider: Shiraz Leyva Other Providers: Chano Goodrich ; Elissa Bardales Supervising Physician Co-Signing Physician Notes I personally examined the patient and verified all medina points of history and exam, discussed case, and agree with decision making with Dr King feeling OK - still some dizziness but better. feels up to going home vitals noted nad heent nc at mmm breathing unlabored no accessory muscles good effort skin no rashes no pallor or icterus vertigo - most likely BPPV, although some findings (particularly response to meclizine) fitting w labarynthitis as well. either way - stable for home. meclizine, vestibular PT, safety precautions outlined. otherwise as above
--- NOTE | 2021-08-13 15:15 | Billing Data ---
Date of Service August 13, 2021 Coding Level of Care Code 28897 OBS Care - Discharge
[2021-08-15 19:31] LABS: Babesia microti DNA Not Detected (Not Detected)
== END 2021-08-13 15:45 | disposition home or self-care (01) ==
LOC: 3W 10:29 → ED 10:29 → SUATTDRO 15:39 → 3W 16:23